=== PATIENT | male | born 1960 | race American Indian/Alaskan Native ===

== ENCOUNTER 2018-03-04 08:43 | Emergency (ER) | payer SELFPAY ==
[2018-03-04 09:16] LABS: Basophils % (Auto) 0.6 % (0.0-1.8); Eosinophils # (Auto) 0.1 K/mm3 (0.0-0.4); Eosinophils % (Auto) 1.9 % (0.0-4.3); Hematocrit 36.5 % (35.5-45.6); Hemoglobin 12.5 gm/dl (11.8-15.2); Lymphocytes # (Auto) 1.6 K/mm3 (1.2-5.4); Lymphocytes % (Auto) 27.3 % (13.4-35.0); Mean Corpuscular HGB Conc 34 % (32-34); Mean Corpuscular Hemoglobin 33 pg (28-32); Mean Corpuscular Volume 97 fl (84-94); Monocytes # (Auto) 0.6 K/mm3 (0.0-0.8); Monocytes % (Auto) 9.8 % (0.0-7.3); Platelet Count 143 K/mm3 (140-440); Red Blood Count 3.76 M/mm3 (3.65-5.03); Red Cell Distribution Width 15.9 % (13.2-15.2)
[2018-03-04 09:29] LABS: BUN/Creatinine Ratio 13; Blood Urea Nitrogen 14 mg/dL (9-20); Calcium 8.2 mg/dL (8.4-10.2); Hemolysis Index 9
--- NOTE | 2018-03-04 09:33 | XRay Report ---
ROUTINE CHEST, TWO VIEWS: HISTORY: Shortness of breath. No comparison. Underlying mild to moderate COPD is suspect. Heart size is within normal limits. Normal mediastinal contour. There are patchy bilateral perihilar infiltrates which could represent pulmonary edema or bilateral pneumonia. No dense consolidation, pleural effusion or pneumothorax is identified. The bony structures are grossly intact. IMPRESSION: COPD. Bilateral perihilar infiltrates suggestive of pulmonary edema or bilateral pneumonia. Please correlate with the patient's clinical presentation.
[2018-03-04] MEDS ORDERED: BABY ASPIRIN PO ONE (09:50)
--- NOTE | 2018-03-04 09:55 | Emergency Department Report ---
Blank Doc - Documentation Documentation: patient with chest pain, sob, n/v, for the past 12 hrs, also has some uri symptoms. he describes his chest pain as substernal, 8/10, without radiation, accompanied by sob, n/v. he has not any meds for his symptoms and he denies any alleviating or exacerbating factors. He is homeless and is not aware of any chronic medical issues.
[2018-03-04 10:19] LABS: INR 1.4 (0.87-1.13)
[2018-03-04 10:20] LABS: Partial Thromboplastin Time 33.2 Sec. (24.2-36.6)
[2018-03-04] MEDS ORDERED: ZOFRAN IV ONE (10:29)
[2018-03-04] MEDS ORDERED: LASIX IV ONE (10:29)
--- NOTE | 2018-03-04 10:35 | Emergency Department Report ---
ED Shortness of Breath HPI - General Chief Complaint: Dyspnea/Respdistress Stated Complaint: DIFFICULTY BREATHING Time Seen by Provider: 03/04/18 10:25 Source: patient Mode of arrival: Wheelchair Limitations: No Limitations - History of Present Illness Initial Comments: Physician is 57 years old male, homeless. Patient presented to the ER complaining of shortness of breath, got worse in the last 2-3 days. Patient is coughing constantly with whitish frothy sputum. The patient denied any fever. Patient initially denied any medical problem and when I told him that he is x- ray and blood work showed that she have congestive heart failure he told me that he was told before that he had congestive heart failure but he is not taking any medication for it. Patient also complaining of left-sided chest pain since yesterday. He describes his pain as sharp and tightness sometimes also associated with nausea and vomiting. MD Complaint: shortness of breath, cough -: Gradual Known History Of: congestive heart failure Associated Symptoms: chest pain, cough, sputum production - Related Data Previous Rx's Medication Instructions Recorded Last Taken Type Furosemide [Lasix] 20 mg PO QDAY #30 tablet 03/04/18 Unknown Rx Lisinopril [Prinivil] 5 mg PO DAILY #30 tablet 03/04/18 Unknown Rx Metoprolol [Lopressor TAB] 25 mg PO DAILY #30 tablet 03/04/18 Unknown Rx Allergies Allergy/AdvReac Type Severity Reaction Status Date / Time No Known Allergies Allergy Unverified 03/04/18 08:47 ED Review of Systems ROS: Stated complaint: DIFFICULTY BREATHING Other details as noted in HPI Comment: All other systems reviewed and negative Constitutional: denies: chills, fever Respiratory: cough, orthopnea, shortness of breath, SOB with exertion, SOB at rest. denies: stridor, wheezing Cardiovascular: chest pain, dyspnea on exertion, orthopnea, paroxysmal nocturnal dyspnea. denies: palpitations Gastrointestinal: nausea, vomiting. denies: abdominal pain, diarrhea, constipation, hematemesis, melena, hematochezia Genitourinary: denies: urgency, dysuria, frequency, hematuria, discharge Musculoskeletal: denies: back pain Neurological: denies: headache, weakness, numbness, paresthesias, confusion, abnormal gait, vertigo ED Past Medical Hx - Past Medical History Previous Medical History?: No Hx Congestive Heart Failure: Yes - Surgical History Past Surgical History?: No - Social History Smoking Status: Former Smoker Substance Use Type: None - Medications Home Medications: Home Medications Medication Instructions Recorded Confirmed Last Taken Type Furosemide [Lasix] 20 mg PO QDAY #30 tablet 03/04/18 Unknown Rx Lisinopril [Prinivil] 5 mg PO DAILY #30 tablet 03/04/18 Unknown Rx Metoprolol [Lopressor TAB] 25 mg PO DAILY #30 tablet 03/04/18 Unknown Rx ED Physical Exam - General Limitations: No Limitations General appearance: alert, other (actively coughing and vomiting.) - Head Head exam: Present: atraumatic, normocephalic, normal inspection - Eye Eye exam: Present: normal appearance, PERRL - ENT ENT exam: Present: normal exam, normal orophraynx, mucous membranes moist - Neck Neck exam: Present: normal inspection, full ROM. Absent: tenderness, meningismus, lymphadenopathy, thyromegaly - Respiratory Respiratory exam: Present: rales, decreased breath sounds. Absent: respiratory distress, wheezes, rhonchi, stridor - Cardiovascular Cardiovascular Exam: Present: regular rate, normal rhythm, normal heart sounds - GI/Abdominal GI/Abdominal exam: Present: soft, normal bowel sounds. Absent: distended, tenderness, guarding, rebound, rigid, organomegaly, mass, bruit, pulsatile mass , hernia - Extremities Exam Extremities exam: Present: normal inspection, full ROM, normal capillary refill. Absent: pedal edema - Neurological Exam Neurological exam: Present: alert, oriented X3, CN II-XII intact, normal gait - Skin Skin exam: Present: warm, intact, normal color ED Course Vital Signs 03/04/18 03/04/18 03/04/18 08:47 10:03 10:16 Temperature 98 F Pulse Rate 95 H Respiratory 18 Rate Blood Pressure 146/99 141/93 O2 Sat by Pulse 98 95 99 Oximetry 03/04/18 03/04/18 03/04/18 10:30 10:46 11:00 Temperature Pulse Rate Respiratory Rate Blood Pressure 149/97 149/97 156/110 O2 Sat by Pulse 95 96 91 Oximetry 03/04/18 03/04/18 03/04/18 11:16 11:30 11:46 Temperature Pulse Rate Respiratory Rate Blood Pressure 156/110 156/110 182/132 O2 Sat by Pulse 92 90 91 Oximetry 03/04/18 03/04/18 12:00 12:16 Temperature Pulse Rate Respiratory Rate Blood Pressure 153/94 153/94 O2 Sat by Pulse 94 90 Oximetry ED Medical Decision Making - Lab Data Result diagrams: 03/04/18 09:02 03/04/18 09:02 - EKG Data -: EKG Interpreted by Me EKG shows normal: sinus rhythm Rate: normal - EKG Data Interpretation: no acute changes - Radiology Data Radiology results: report reviewed - Medical Decision Making I discussed the patient with Dr Mcfarland, agreed to admit to his service. Critical care attestation.: If time is entered above; I have spent that time in minutes in the direct care of this critically ill patient, excluding procedure time. ED Disposition Clinical Impression: CHF exacerbation, Shortness of breath, Nonadherence to medication Disposition: OP ADMIT IP TO THIS HOSP Is pt being admited?: Yes Condition: Stable Prescriptions: Furosemide [Lasix] 20 mg PO QDAY #30 tablet Lisinopril [Prinivil] 5 mg PO DAILY #30 tablet Metoprolol [Lopressor TAB] 25 mg PO DAILY #30 tablet Referrals: PRIMARY CARE, [Primary Care Provider] - 3-5 Days
--- NOTE | 2018-03-04 12:49 | History and Physical Report ---
History of Present Illness Chief complaint: Im short of breath History of present illness: 57 YO Male with Systolic CHF, HTN, Medication Noncompliance, presents to ED for evaluation. Pt states that he has experienced shortness of breath for the past 3 days with persistent symtpoms during the same time frame, Pt seen and evaluated in ED and found to have CHF. Pt treated with diuresis, and antihypertensive therapy with resolution of symptoms. Pt medically optimized and back to usual state of health. Pt discharged home and instructed to f/u pcp wk, and cardiology 1 wk. Past History Past Medical History: heart failure, hypertension Past Surgical History: No surgical history, Other (reviewed) Social history: single, other (homeless). denies: smoking, alcohol abuse, prescription drug abuse Family history: hypertension Medications and Allergies Allergies Allergy/AdvReac Type Severity Reaction Status Date / Time No Known Allergies Allergy Unverified 03/04/18 08:47 Home Medications Medication Instructions Recorded Confirmed Last Taken Type Furosemide [Lasix] 20 mg PO QDAY #30 tablet 03/04/18 Unknown Rx Lisinopril [Prinivil] 5 mg PO DAILY #30 tablet 03/04/18 Unknown Rx Metoprolol [Lopressor TAB] 25 mg PO DAILY #30 tablet 03/04/18 Unknown Rx Review of Systems Constitutional: no weight loss, no weight gain, no fever, no chills Ears, nose, mouth and throat: no ear pain, no ear discharge, no tinnitis, no decreased hearing, no nose pain, no nasal congestion Cardiovascular: shortness of breath, no chest pain, no orthopnea, no palpitations Respiratory: cough, no cough with sputum, no excessive sputum, no hemoptysis Gastrointestinal: no nausea, no vomiting, no diarrhea, no constipation Genitourinary Male: no hematuria, no flank pain, no discharge, no urinary frequency Rectal: no pain, no incontinence, no bleeding Musculoskeletal: no neck stiffness, no neck pain, no shooting arm pain, no arm numbness/tingling, no low back pain, no shooting leg pain Integumentary: no rash, no pruritis, no redness, no sores, no wounds, no jaundice Neurological: no head injury, no transient paralysis, no paralysis, no weakness , no parathesias, no numbness, no tingling Psychiatric: no anxiety, no memory loss, no change in sleep habits, no sleep disturbances, no insomnia Hematologic/Lymphatic: no easy bruising, no easy bleeding, no lymphadenopathy, no lymphedema Allergic/Immunologic: no urticaria, no allergic rhinitis, no wheezing, no persistent infections, no anaphylaxis Exam - Constitutional Vitals: Temp Pulse Resp BP Pulse Ox 98 F 95 H 18 153/94 90 03/04/18 08:47 03/04/18 08:47 03/04/18 08:47 03/04/18 12:16 03/04/18 12:16 General appearance: Present: no acute distress, well-nourished - EENT Eyes: Present: PERRL ENT: hearing intact, clear oral mucosa - Neck Neck: Present: supple, normal ROM - Respiratory Respiratory effort: normal Respiratory: bilateral: CTA - Cardiovascular Heart Sounds: Present: S1 & S2. Absent: rub, click - Extremities Extremities: pulses symmetrical, No edema Peripheral Pulses: within normal limits - Abdominal General gastrointestinal: Present: soft, non-tender, non-distended, normal bowel sounds Male genitourinary: Present: normal - Integumentary Integumentary: Present: clear, warm, dry - Musculoskeletal Musculoskeletal: gait normal, strength equal bilaterally - Psychiatric Psychiatric: appropriate mood/affect, intact judgment & insight - Neurologic Neurologic: CNII-XII intact, moves all extremities Results - Labs CBC & Chem 7: 03/04/18 09:02 03/04/18 09:02 Labs: Abnormal lab results 03/04/18 03/04/18 03/04/18 Range/Units 09:02 09:02 09:02 MCV 97 H (84-94) fl MCH 33 H (28-32) pg RDW 15.9 H (13.2-15.2) % [place] % (Auto) 9.8 H (0.0-7.3) % PT (12.2-14.9) Sec. INR (0.87-1.13) Glucose 106 H (75-100) mg/dL Calcium 8.2 L (8.4-10.2) mg/dL Troponin T 0.095 H (0.00-0.029) ng/mL NT-Pro-B Natriuret Pep (0-900) pg/mL 03/04/18 03/04/18 03/04/18 Range/Units 09:02 09:53 10:31 MCV (84-94) fl MCH (28-32) pg RDW (13.2-15.2) % [place] % (Auto) (0.0-7.3) % PT 18.0 H (12.2-14.9) Sec. INR 1.40 H (0.87-1.13) Glucose (75-100) mg/dL Calcium (8.4-10.2) mg/dL Troponin T 0.096 H (0.00-0.029) ng/mL NT-Pro-B Natriuret Pep 92502 H (0-900) pg/mL Assessment and Plan - Patient Problems (1) CHF (congestive heart failure) Current Visit: Yes Status: Acute Qualifiers: Heart failure type: systolic Heart failure chronicity: chronic Qualified Code(s): I50.22 - Chronic systolic (congestive) heart failure Plan to address problem: Pt medically optimized, Pt prescribed, Lisinopril, metoprolol, and lasix therapy. F/U pcp 1wk, cardiology 1 wk (2) HTN (hypertension) Current Visit: Yes Status: Acute Qualifiers: Hypertension type: essential hypertension Qualified Code(s): I10 - Essential (primary) hypertension Plan to address problem: pt prescribed antihypertensive therapy. PT to f/u pcp 1wk with blood pressure log 3x daily (3) Nonadherence to medication Current Visit: Yes Status: Acute Plan to address problem: Pt counseled
[2018-03-04 15:40] LABS: Bilirubin,Urine NEG (Negative); Blood,Urine MOD (Negative); Color,Urine Straw (Yellow); Protein,Urine <15 mg/dL mg/dL (Negative); Urobilinogen,Urine < 2.0 mg/dL (<2.0); WBC,Urine < 1.0 /HPF (0.0-6.0)
[2018-03-04 15:45] LABS: Amphetamine Screen,Urine PRESUMPTIVE NEGATIVE; Benzodiazepines Screen,Urine PRESUMPTIVE NEGATIVE; Cannabinoid Screen,Urine PRESUMPTIVE NEGATIVE; Methadone Screen,Urine PRESUMPTIVE NEGATIVE; Opiate Screen,Urine PRESUMPTIVE NEGATIVE
[2018-03-04 16:11] LABS: Cocaine Screen,Urine PRESUMPTIVE POSITIVE
[2018-03-04] MEDS ORDERED: LOPRESSOR PO ONE (18:00)
[2018-03-04] MEDS ORDERED: ZESTRIL PO ONE (18:00)
[2018-03-05 10:02] VITALS: BP 142/87
== END 2018-03-05 10:03 | disposition admitted as inpatient to this hospital (09) ==
LOC: ED 08:43
DX: R06.02 Shortness of breath (principal); I50.9 Heart failure, unspecified; Z91.19 Patient's noncompliance with other medical treatment and regimen; Z87.891 Personal history of nicotine dependence
CPT/HCPCS: 36415; 71046; 80048; 80307; 81001; 83690; 83880; 84484; 85025; 85610; 85730; 93005; 93010; 96374; 96375; 99284; G0480; J1940; J2405; 80320

== ENCOUNTER 2018-05-27 06:48 | Emergency (ER) | payer SELFPAY ==
[2018-05-27 08:01] LABS: Basophils # (Auto) 0.1 K/mm3 (0.0-0.1); Basophils % (Auto) 1.8 % (0.0-1.8); Eosinophils # (Auto) 0.1 K/mm3 (0.0-0.4); Eosinophils % (Auto) 1.3 % (0.0-4.3); Hematocrit 34.9 % (35.5-45.6); Lymphocytes % (Auto) 35.5 % (13.4-35.0); Mean Corpuscular HGB Conc 35 % (32-34); Mean Corpuscular Hemoglobin 35 pg (28-32); Mean Corpuscular Volume 103 fl (84-94); Monocytes # (Auto) 0.6 K/mm3 (0.0-0.8); Monocytes % (Auto) 9.7 % (0.0-7.3); Platelet Count 120 K/mm3 (140-440); Red Blood Count 3.41 M/mm3 (3.65-5.03); Red Cell Distribution Width 19.4 % (13.2-15.2)
[2018-05-27 08:17] VITALS: BP 146/105
[2018-05-27 08:19] LABS: Alanine Aminotransferase 49 units/L (7-56); Albumin 2.2 g/dL (3.9-5); BUN/Creatinine Ratio 10; Blood Urea Nitrogen 11 mg/dL (9-20); Hemolysis Index 89
--- NOTE | 2018-05-27 08:22 | Emergency Department Report ---
HPI - General Chief Complaint: Dyspnea/Respdistress Time Seen by Provider: 05/27/18 08:06 - [facility] HPI: Room 26 The patient is a 57-year-old male presenting with a chief complaint of shortness of breath and chest pain. The patient stayed for one week as felt short of breath and has had intermittent substernal chest pain described as burning in nature. Patient admits to diaphoresis with this chest pain but denies nausea or vomiting. Patient states he's had a cough that has been nonproductive. Patient admits to subjective fever. Patient denies any other forms of pain. Location: Lungs, chest Duration: One week Quality: Burning, shortness of breath Severity: Moderate Modifying factors: [see above] Context: [see above] Mode of transportation: [not driving] ED Past Medical Hx - Past Medical History Previous Medical History?: Yes Hx Hypertension: Yes Hx Congestive Heart Failure: Yes - Surgical History Past Surgical History?: Yes Additional Surgical History: right leg orif - Family History Family history: no significant - Social History Smoking Status: Current Every Day Smoker (1/7 pack per day) Substance Use Type: None (denies illicit drug use) - Medications Home Medications: Home Medications Medication Instructions Recorded Confirmed Last Taken Type Furosemide [Lasix] 20 mg PO QDAY #30 tablet 03/04/18 Unknown Rx Lisinopril [Prinivil] 5 mg PO DAILY #30 tablet 03/04/18 Unknown Rx Metoprolol [Lopressor TAB] 25 mg PO DAILY #30 tablet 03/04/18 Unknown Rx ED Review of Systems ROS: Stated complaint: OTF Other details as noted in HPI Constitutional: diaphoresis Eyes: denies: eye pain ENT: denies: throat pain Respiratory: shortness of breath Cardiovascular: chest pain Endocrine: no symptoms reported Gastrointestinal: denies: abdominal pain, nausea, vomiting Genitourinary: denies: dysuria Musculoskeletal: denies: back pain Neurological: denies: headache Physical Exam - Physical Exam Vital Signs: Vital Signs 05/27/18 07:16 Temperature 97.7 F Pulse Rate 98 H Respiratory 22 Rate Blood Pressure 141/105 O2 Sat by Pulse 100 Oximetry Physical Exam: GENERAL: The patient is well-developed well-nourished male lying on stretcher not appearing to be in acute distress. [] HEENT: Normocephalic. Atraumatic. Extraocular motions are intact. NECK: Supple. Trachea midline CHEST/LUNGS: Clear to auscultation. There is no respiratory distress noted. HEART/CARDIOVASCULAR: Regular. There is no tachycardia. There is no gallop rub or murmur. ABDOMEN: Abdomen is soft, nontender. Patient has normal bowel sounds. There is no abdominal distention. SKIN: There is no rash. There is no edema. There is no diaphoresis. NEURO: The patient is awake, alert, and oriented. The patient is cooperative. The patient has normal speech MUSCULOSKELETAL: There is no evidence of acute injury. ED Course Vital Signs 05/27/18 07:16 Temperature 97.7 F Pulse Rate 98 H Respiratory 22 Rate Blood Pressure 141/105 O2 Sat by Pulse 100 Oximetry - Reevaluation(s) Reevaluation #1: 05/27/18 09:21 Patient refusing IV, CT scan and further care. I explained to the patient that his blood work was abnormal and I recommend he be admitted to the hospital for further studies. Patient verbalized understanding but states he doesn't care wants to leave. Patient informed that he may potentially or become more ill if he leaves the hospital AGAINST MEDICAL ADVICE. Patient verbalizes understanding ED Medical Decision Making - Lab Data Result diagrams: 05/27/18 07:51 05/27/18 07:51 Laboratory Tests 05/27/18 05/27/18 05/27/18 07:51 07:51 07:51 WBC 5.7 RBC 3.41 L Hgb 12.0 Hct 34.9 L MCV 103 H MCH 35 H MCHC 35 H RDW 19.4 H Plt Count 120 L Lymph % (Auto) 35.5 H [place] % (Auto) 9.7 H Eos % (Auto) 1.3 Baso % (Auto) 1.8 Lymph # 2.0 [place] # 0.6 Eos # 0.1 Baso # 0.1 Seg Neutrophils % 51.7 Seg Neutrophils # 3.0 D-Dimer Sodium 134 L Potassium 4.6 Chloride 101.6 Carbon Dioxide 18 L Anion Gap 19 BUN 11 Creatinine 1.1 Estimated GFR > 60 BUN/Creatinine Ratio 10 Glucose 86 Calcium 8.0 L Total Bilirubin 1.70 H AST 123 H ALT 49 Alkaline Phosphatase 110 Total Creatine Kinase 194 H CK-MB (CK-2) 4.6 H CK-MB (CK-2) Rel Index 2.3 Troponin T 0.011 Total Protein 8.7 H Albumin 2.2 L Albumin/Globulin Ratio 0.3 05/27/18 08:19 WBC RBC Hgb Hct MCV MCH MCHC RDW Plt Count Lymph % (Auto) [place] % (Auto) Eos % (Auto) Baso % (Auto) Lymph # [place] # Eos # Baso # Seg Neutrophils % Seg Neutrophils # D-Dimer 1113.46 H Sodium Potassium Chloride Carbon Dioxide Anion Gap BUN Creatinine Estimated GFR BUN/Creatinine Ratio Glucose Calcium Total Bilirubin AST ALT Alkaline Phosphatase Total Creatine Kinase CK-MB (CK-2) CK-MB (CK-2) Rel Index Troponin T Total Protein Albumin Albumin/Globulin Ratio - EKG Data -: EKG Interpreted by Me EKG shows normal: sinus rhythm Rate: normal (98 bpm) - EKG Data When compared to previous EKG there are: changes noted Interpretation: nonspecific ST-T wave you (new T-wave inversion in lead V5 when compared to previous EKG dated 03/04/2018) - Differential Diagnosis ACS, pneumonia, CHF exacerbation, bronchitis Critical care attestation.: If time is entered above; I have spent that time in minutes in the direct care of this critically ill patient, excluding procedure time. ED Disposition Clinical Impression: Chest pain, Shortness of breath Disposition: -07 LEFT AGAINST MED ADVICE Is pt being admited?: No Does the pt Need Aspirin: Yes Condition: Undetermined Instructions: Chest Pain (ED) Referrals: PRIMARY CARE, [Primary Care Provider] - 3-5 Days Time of Disposition: 09:22 (patient leaving AMA)
[2018-05-27 08:36] LABS: Creatine Kinase MB 4.6 ng/mL (0.0-4.0)
[2018-05-27] MEDS ORDERED: ASPIRIN PO ONE (09:23)
== END 2018-05-27 09:17 | disposition left against medical advice (07) ==
LOC: ED 06:48
DX: R06.02 Shortness of breath (principal); R07.89 Other chest pain; R05 Cough; R50.9 Fever, unspecified; I11.0 Hypertensive heart disease with heart failure; I50.9 Heart failure, unspecified; F17.200 Nicotine dependence, unspecified, uncomplicated
CPT/HCPCS: 36415; 80053; 82550; 82553; 84484; 85025; 85379; 93005; 93010; 99284